=== PATIENT | male | born 1950 | race Caucasian/White ===

== ENCOUNTER → 2018-06-08 08:58 | Outpatient (CLI) | payer BC, SELFPAY ==
--- NOTE | 2018-06-08 | DI.MRI.S_ITS ---
PROCEDURE: MR HEAD/BRAIN WO/W CON INDICATIONS: TREMOR TECHNIQUE: Noncontrast axial T1 spin echo, axial T2 fast spin echo, sagittal and axial FLAIR, axial gradient echo, axial diffusion and ADC, coronal thin-slice T2 FSE through the brain. Optional contrast, followed by axial and coronal 3D VIBE or T1 spin echo with fat saturation sequences through the brain. COMPARISON: None. FINDINGS: Image quality: Diagnostic, with note made of motion artifact. CSF spaces: Ventricles are normal in size and shape. Basal cisterns are patent. No extra-axial fluid collections. Brain: No intracranial bleeds or mass effects. No abnormal intracranial enhancement. Diallo-white matter interface appears intact. Ventricle volume loss can be seen. Chronic small vessel ischemic changes are seen. Diffusion weighted images demonstrate no acute ischemic insults. Brainstem appear normal. Normal intravascular flow voids are present. The hippocampal regions appear normal and symmetric in morphology. Skull and face: Calvarial marrow signal is normal. Orbits appear normal. Note is made of bilateral lens replacements. Sinuses: Sinuses and mastoids are clear. IMPRESSION: Unremarkable study for age, without an imaging explanation found for the patient's presenting history of tremor. Dictated by: Rigo Andino M.D. on 06/08/2018 at 11:57 Approved by: Rigo Andino M.D. on 06/08/2018 at 11:58
[2018-06-08 09:28] LABS: BUN Creatinine Ratio 13.6 (6-22); Blood Urea Nitrogen 15 mg/dL (9-20); Estimated Glomerular Filt Rate > 60.0 mL/min (>60)
== END ==
PROVIDERS: Visit Provider Psychiatry & Neurology Neurology
DX: R25.1 Tremor, unspecified (principal); T88.7XXA Unspecified adverse effect of drug or medicament, initial encounter
CPT/HCPCS: 36415; 70553; 82565; 84520

== ENCOUNTER → 2021-03-27 11:45 | Outpatient (CLI) | payer MEDICARE, OTHER, SELFPAY ==
--- NOTE | 2021-03-27 | DI.US.S_ITS ---
PROCEDURE: US RENAL COMPLETE INDICATIONS: Calculus of ureter TECHNIQUE: Real-time scanning was performed of the kidneys and bladder, with image documentation. COMPARISON: None. FINDINGS: Kidneys: Kidneys are normal in size. Right kidney measures 12.1 cm long; left kidney measures 11.3 cm long. Right renal cortical thickness is 1.5 cm; left renal cortical thickness is 1.8 cm. Renal cortical echotexture is normal. No hydronephrosis or nephrolithiasis. No suspicious solid mass lesions. Bladder: Pre-void bladder volume is 534 mL. Post-void residual is 358 mL. Pre-void images demonstrate no intraluminal masses or stones. On pre-void images, neither of the ureteral jets are noted with color Doppler interrogation. (Of note, ureteral jets may not be detectable in up to 25% of cases due to insufficient differences in specific gravity between ureteral and bladder urine). Miscellaneous: No free pelvic fluid. IMPRESSION: No hydronephrosis although large postvoid residual measuring 358 cc. Dictated by: Vladimir Minaya M.D. on 03/27/2021 at 13:12 Approved by: Vladimir Minaya M.D. on 03/27/2021 at 13:13
== END ==
PROVIDERS: PCP Physician Assistant Medical; Referring Provider Urology; Visit Provider Urology
DX: N20.1 Calculus of ureter (principal)
CPT/HCPCS: 76770